=== PATIENT | male | born 1965 | race Caucasian/White ===

== ENCOUNTER 2022-11-13 19:39 | Emergency (ER) | payer MEDICAID, OTHER, SELFPAY ==
[2022-11-13 19:56] VITALS: BP 162/76; PULSE 71; RESP 18; O2SAT 95; BMI 25.7
--- NOTE | 2022-11-13 20:03 | DI.RAD.S_ITS ---
PROCEDURE: XR ANKLE LT MIN 3V INDICATIONS: injury TECHNIQUE: 3 views of the ankle were acquired. COMPARISON: None. FINDINGS: Bones: No fractures or dislocations. Ankle mortise is normally aligned. No suspicious bony lesions. Soft tissues: There is periarticular soft tissue swelling. There is a small tibiotalar joint effusion. Achilles tendon appears normal. IMPRESSION: 1. No fracture or dislocation. Dictated by: Montana Hankins M.D. on 11/13/2022 at 21:33 Approved by: Montana Hankins M.D. on 11/13/2022 at 21:33
--- NOTE | 2022-11-14 01:11 | ED.LOWEXIN ---
HPI - Extremity Injury (Lower) General Chief Complaint: Extremity Injury, Lower Stated Complaint: Left ankle injury Time Seen by Provider: 11/14/22 01:06 Source: patient Mode of arrival: Wheelchair History of Present Illness HPI Narrative: Patient 57-year-old male history of hypertension mitral valve prolapse presenting today with left ankle pain. He reports that he tore his ACL he is waiting to get it repaired in the meantime he fell 2 days ago injuring his left ankle. His left leg is noted to be erythematous swollen and tender to touch. He denies any fever chills or shortness for breath. Related Data Previous Rx's Medication Instructions Recorded doxycycline hyclate 100 mg capsule 100 mg PO BID #20 caps 11/14/22 Allergies Allergy/AdvReac Type Severity Reaction Status Date / Time Penicillins Allergy Unknown Verified 11/14/22 02:04 Review of Systems Review of Systems ROS Unobtainable: All systems reviewed & are unremarkable except as noted in HPI and below Patient History Social History Smoking Status: Current every day smoker Smoking Status: Current every day smoker Substance Use Type: does not use Exam Initial Vital Signs Initial Vital Signs: Vital Signs Pulse Rate 71 11/13/22 19:56 Respiratory Rate 18 11/13/22 19:56 Blood Pressure 162/76 H 11/13/22 19:56 Pulse Oximetry 95 11/13/22 19:56 Oxygen Delivery Method Room Air 11/13/22 19:56 GENERAL: Alert pleasant 57-year-old male and in no acute distress. HEENT: Head atraumatic,EOMI, pupils reactive, face symmetric, moist mucous membranes CARDIOVASCULAR: Regular rate and rhythm without murmurs, rubs or gallops. RESPIRATORY: Breath sounds equal bilaterally, no wheezes rales or rhonchi. ABDOMEN: Soft, nontender. Normoactive bowel sounds all 4 quadrants. No guarding or rebound. EXTREMITIES: Normal range of motion, no clubbing or edema. Neurovascularly intact NEUROLOGICAL: Alert and oriented x4.Normal gait and speech. SKIN: Erythematous swollen left lower extremity +2 pitting edema. Erythema is inferior of the knee but is most of the lower extremity Course Orders Ordered: ED Orders 11/14/22 01:20 US periph venous low extrem lt Stat 11/14/22 01:30 CBC Auto Diff [Complete Blood Count AUTO DIFF] Stat CMP [Comprehensive Metabolic Panel] Stat Lactate (Lactic Acid) Stat 11/14/22 01:40 Blood Culture Stat Discontinued Medications Ceftriaxone Sodium 2,000 mg/ (Sodium Chloride) 100 mls @ 200 mls/hr IV NOW ONE Stop: 11/14/22 01:21 Last Infusion: 11/14/22 02:09 Dose: 0 mls/hr Documented By: Admin: 11/14/22 01:39 Dose: 200 mls/hr Documented By: CHRIS Vital Signs Vital signs: Vital Signs - 8 hr 11/14/22 03:32 Temperature 97.6 F Pulse Rate 88 Respiratory Rate 18 Blood Pressure 164/88 H Pulse Oximetry 97 Oxygen Delivery Method Room Air MDM - Extremity Injury (Lower) Lab Data 11/14/22 01:30 11/14/22 01:30 Labs: Lab Results 11/14/22 11/14/22 11/14/22 Range/Units 01:30 01:30 01:30 WBC 6.5 (4.5-11.0) X10^3/uL RBC 4.18 L (4.5-5.9) X10^6/uL Hgb 12.8 L (13.5-17.5) g/dL Hct 37.5 L (41-53) % MCV 89.7 (80-100) fL MCH 30.6 (26-34) PG MCHC 34.1 (30-36) % RDW 13.3 (11.6-14.8) % Plt Count 182 (150-400) X10^3/uL Neut % (Auto) 67.8 (50-75) % Lymph % (Auto) 21.6 L (25-40) % [place] % (Auto) 10.0 (3-14) % Eos % (Auto) 0.5 L (2-4) % Baso % (Auto) 0.1 (0-2) % Neut # (Auto) 4400 (5549-5040) /uL Lymph # (Auto) 1400 (5043-9530) /uL [place] # (Auto) 700 (0-900) /uL Eos # (Auto) 0 (0-450) /uL Baso # (Auto) 0 (0-100) /uL Sodium 135 L (137-145) mmol/L Potassium 3.3 L (3.4-5.1) mmol/L Chloride 94 L (98-107) mmol/L Carbon Dioxide 34 H (22-32) mmol/L BUN 13 (9-20) mg/dL Creatinine 0.71 (0.66-1.25) mg/dL Estimated GFR > 60 (>60) mL/min BUN/Creatinine Ratio 18.3 (6-22) Glucose 106 H (70-100) mg/dL Lactate 0.7 (0.7-2.1) mmol/L Calcium 8.8 (8.4-10.2) mg/dL Total Bilirubin 0.6 (0.2-1.3) mg/dL AST 34 (17-59) IU/L ALT 33 (<50) IU/L Alkaline Phosphatase 84 (38-126) U/L Total Protein 7.0 (6.3-8.2) g/dL Albumin 3.8 (3.5-5.0) g/dL Globulin 3.2 (1.7-4.1) g/dL Albumin/Globulin Ratio 1.2 (1.0-2.8) Imaging Data Extremity x-ray #1: Radiologist's Impression: PROCEDURE:? XR ANKLE LT MIN 3V ? INDICATIONS:? injury ? TECHNIQUE:? 3 views of the ankle were acquired.? ? COMPARISON:? None. ? FINDINGS:? ? Bones:? No fractures or dislocations.? Ankle mortise is normally aligned.? No suspicious bony lesions.? ? Soft tissues:? There is periarticular soft tissue swelling.? There is a small tibiotalar joint effusion.? Achilles tendon appears normal.? ? ? IMPRESSION:? ? 1. No fracture or dislocation. ? Dictated by: Montana Hankins M.D. on 11/13/2022 at 21:33 ? ? US - DVT: Radiologist's Impression: Preliminary report negative for left lower extremity DVT MDM Narrative Medical decision making narrative: Patient 57-year-old male who presents today with left leg pain and lower extremity erythema concern for cellulitis. Ultrasound was done and ruled out a DVT. He does not show signs of sepsis vitals are stable he has no leukocytosis or elevated lactate. Electrolytes show mild hypokalemia and hyponatremia sodium 135 potassium 3 3 he is a bicarb of 34. He did receive 1 dose of Rocephin will send him home on doxycycline with strict return precautions. He is also placed in a knee mobilizer help stabilize knee he is given crutches. Discharge Plan Departure Patient Disposition: Home Clinical Impression: Cellulitis Instructions: DI for Cellulitis -- Adult Activity Restrictions/Additional Instructions: *You have been diagnosed with cellulitis *What to do: Please monitor the redness in your leg you have an infection. If it is getting worse you must return to the emergency department. You can follow-up with orthopedics in regards to your knee. *Continue to take medications as directed Doxycycline 100 mg twice a day for 10 days *Follow up with your primary care provider in 2-3 days or call [phone] *Return to ER if you should have increasing redness pain and swelling or any new, worsening or concerning symptoms Prescriptions: New doxycycline hyclate 100 mg capsule 100 mg PO BID Qty: 20 0RF Referrals: [facility] [Provider Group] Stand Alone Forms: Patient Portal/API
--- NOTE | 2022-11-14 01:20 | DI.US.S_ITS ---
PROCEDURE: US PERIPH VENOUS LOW EXTREM LT INDICATIONS: swelling TECHNIQUE: Real-time imaging, as well as color and pulse Doppler interrogation, were performed of the lower extremity deep veins from the inguinal ligament to the popliteal fossa. COMPARISON: None. FINDINGS: The common femoral, femoral and popliteal veins are normally compressible, and free of intraluminal thrombus. Color and pulse Doppler demonstrate normal phasic intraluminal flow. There is normal augmentation response to distal compression maneuver. IMPRESSION: Negative for DVT. Agree with prelim report. Prominent left groin lymph nodes measuring up to 0.9 cm in short axis. Dictated by: Edward Alvarenga M.D. on 11/14/2022 at 8:04 Approved by: Edward Alvarenga M.D. on 11/14/2022 at 8:04
[2022-11-14] MEDS: cefTRIAXone 2,000 MG in SODIUM CHLORIDE 0.9% 100 ML 200 MG IV (01:39)
[2022-11-14 02:05] LABS: Lactate (Lactic Acid) 0.7 mmol/L (0.7-2.1)
[2022-11-14 02:06] LABS: Alanine Aminotransferase 33 IU/L (<50); Albumin 3.8 g/dL (3.5-5.0); Albumin Globulin Ratio 1.2 (1.0-2.8); Alkaline Phosphatase 84 U/L (38-126); Aspartate Aminotransferase 34 IU/L (17-59); BUN Creatinine Ratio 18.3 (6-22); Bilirubin Total 0.6 mg/dL (0.2-1.3); Blood Urea Nitrogen 13 mg/dL (9-20); Calcium 8.8 mg/dL (8.4-10.2); Carbon Dioxide 34 mmol/L (22-32); Chloride 94 mmol/L (98-107); Estimated Glomerular Filt Rate > 60 mL/min (>60); Globulin 3.2 g/dL (1.7-4.1); Glucose 106 mg/dL (70-100); HEMOLYSIS < 15 (0-50); Potassium 3.3 mmol/L (3.4-5.1); Sodium 135 mmol/L (137-145)
[2022-11-14 02:08] LABS: Add Manual Diff / Slide Review NO; Basophils Absolute Auto 0 /uL (0-100); Basophils Percent Auto 0.1 % (0-2); Eosinophils Absolute Auto 0 /uL (0-450); Eosinophils Percent Auto 0.5 % (2-4); Hematocrit 37.5 % (41-53); Hemoglobin 12.8 g/dL (13.5-17.5); Lymphocytes Absolute Auto 1400 /uL (1100-4500); Lymphocytes Percent Auto 21.6 % (25-40); Mean Corpuscular HGB Conc 34.1 % (30-36); Mean Corpuscular Hemoglobin 30.6 PG (26-34); Mean Corpuscular Volume 89.7 fL (80-100); Monocytes Absolute Auto 700 /uL (0-900); Neutrophils Absolute Auto 4400 /uL (1500-7000); Neutrophils Percent Auto 67.8 % (50-75); Platelet Count 182 X10^3/uL (150-400); Red Blood Cell Count 4.18 X10^6/uL (4.5-5.9); Red Cell Distribution Width 13.3 % (11.6-14.8); White Blood Cell Count 6.5 X10^3/uL (4.5-11.0)
[2022-11-14 03:32] VITALS: BP 164/88; PULSE 88; RESP 18; TEMP 36.4; O2SAT 97
== END 2022-11-14 03:33 | disposition home or self-care (01) ==
PROVIDERS: Emergency Provider Emergency Medicine
DX: L03.116 Cellulitis of left lower limb (principal)
CPT/HCPCS: 36415; 73610; 80053; 83605; 85025; 87040; 93971; 96365; 99284; J0696

== ENCOUNTER 2023-04-03 14:19 | Emergency (ER) | payer OTHER, MEDICAID, SELFPAY ==
[2023-04-03 14:26] VITALS: BP 201/95; PULSE 67; RESP 16; TEMP 36.9; O2SAT 99; BMI 27.7
--- NOTE | 2023-04-03 14:45 | DI.RAD.S_ITS ---
PROCEDURE: XR KNEE RT 1TO2V INDICATIONS: knee pain TECHNIQUE: 2 views of the knee were acquired. COMPARISON: None. FINDINGS: Bones: No fractures or dislocations. No suspicious bony lesions. Soft tissues: Small joint effusion. No suspicious soft tissue calcifications. IMPRESSION: Small knee joint effusion. No displaced fracture. If there remains a high clinical concern or the patient cannot bear weight, consider cross-sectional imaging to exclude an occult fracture. Dictated by: Cristiano Hassan M.D. on 04/03/2023 at 16:52 Approved by: Cristiano Hassan M.D. on 04/03/2023 at 16:52
--- NOTE | 2023-04-03 14:45 | DI.RAD.S_ITS ---
PROCEDURE: XR KNEE LT 1TO2V INDICATIONS: knee pain TECHNIQUE: 2 views of the knee were acquired. COMPARISON: None. FINDINGS: Bones: No fractures or dislocations. No suspicious bony lesions. Soft tissues: Moderate joint effusion. No suspicious soft tissue calcifications. IMPRESSION: Moderate knee joint effusion. No displaced fracture. If there remains a high clinical concern or the patient cannot bear weight, consider cross-sectional imaging to exclude an occult fracture. Dictated by: Cristiano Hassan M.D. on 04/03/2023 at 16:51 Approved by: Cristiano Hassan M.D. on 04/03/2023 at 16:52
[2023-04-03 16:20] VITALS: BP 213/95; PULSE 63; O2SAT 98
--- NOTE | 2023-04-03 16:20 | PC.NURSE ---
COLEMAN Corado notified of SBP of 213
--- NOTE | 2023-04-03 16:40 | ED_ITS ---
HPI - Extremity Problem <Mickie Loyd PA-C - Last Filed: 04/03/23 18:48> General Chief complaint: Extremity Problem,Nontraumatic Stated complaint: knees not functioning Time Seen by Provider: 04/03/23 14:39 Source: patient Mode of arrival: Wheelchair History of Present Illness HPI Narrative: 58-year-old male with no reported past medical history presents to the ED with 1 year of bilateral knee pain. Patient states he has had the chronic knee pain for a year or more, however it is worsening recently, he is unable to bear weight and that it is very painful. Patient states that he has a nurse who sees him every 3 days to ensure that he is taking his medications, and that she sent him to the ED for some imaging. Patient states that he is in the ED today in order to get some imaging. Patient denies any recent trauma. Patient denies numbness, tingling, weakness, fever, chills, chest pain, shortness of breath. Related Data Home Medications Medication Instructions Recorded Confirmed morphine 60 mg tablet,extended 60 mg PO Q8H 04/03/23 04/03/23 release oxycodone 15 mg tablet 15 mg PO Q4-6H PRN severe pain 04/03/23 04/03/23 Allergies Allergy/AdvReac Type Severity Reaction Status Date / Time Penicillins Allergy Unknown Verified 04/03/23 14:26 Review of Systems <Mickie Loyd PA-C - Last Filed: 04/03/23 18:48> Constitutional Constitutional: Denies chills, Denies fatigue, Denies fever(s), Denies frequent falls, Denies lethargy and Denies weakness Eyes Eyes: Denies change in vision, Denies eye discharge, Denies irritation and Denies loss of vision ENT Ears, Nose, Mouth, and Throat: Denies change in voice, Denies dizziness, Denies neck pain, Denies sore throat and Denies throat swelling Cardiovascular Cardiovascular: Denies chest pain, Denies irregular heart rhythm, Denies lightheadedness, Denies palpitations, Denies dyspnea, Denies dyspnea on exertion and Denies orthopnea Respiratory Respiratory: Denies cough, Denies dyspnea, Denies dyspnea on exertion and Denies wheezing Gastrointestinal Gastrointestinal: Denies abdominal pain, Denies change in bowel habits, Denies diarrhea, Denies nausea and Denies vomiting Musculoskeletal Musculoskeletal: Denies neck pain and Denies numbness Comments: Bilateral knee pain, left greater than right Integumentary/Breasts Skin/Breast: Denies pruritus, Denies erythema, Denies rash and Denies wounds Neurologic Neurologic: Denies behavioral changes, Denies confusion, Denies dizziness, Denies frequent falls, Denies loss of vision, Denies numbness and Denies weakness Psychiatric Psychiatric: Denies anxiety, Denies behavioral changes, Denies confusion, Denies depression, Denies homicidal ideation and Denies suicidal ideation Endocrine Endocrine: Denies fatigue, Denies flushing and Denies palpitations Hematologic/Lymphatic Hematologic/Lymphatic: Denies easy bruising Allergic/Immunologic Allergic/Immunologic: Denies urticaria, Denies throat swelling and Denies wheezing Patient History <Mickie Loyd PA-C - Last Filed: 04/03/23 18:48> Social History Smoking Status: Current every day smoker Smoking Status: Current every day smoker tobacco type: cigarettes Substance Use Type: does not use Exam <Mickie Loyd PA-C - Last Filed: 04/03/23 18:48> Narrative Exam Narrative: Const General:?cooperative, healthy appearing and comfortable [facility] Head:?normal to inspection Ears:?hearing grossly normal bilaterally Nose:?external nose normal Face and sinus:?normal facial exam and sinuses nontender Mouth:?oral mucosae normal Throat:?posterior oropharynx normal Eyes General:?appearance normal, both eyes and all related structures Neck Neck:?normal visual inspection and no lymphadenopathy noted Resp Effort & Inspection:?normal respiratory effort Auscultation:?clear to auscultation bilaterally Cardio Rate:?regular rate Rhythm:?regular rhythm Musculoskeletal Bilateral knees appear normal to inspection. No erythema, bruising, deformities. There is no tenderness to palpation. There is full range of motion. Patient is neurovascularly intact. Neuro General:?patient alert, patient awake and patient oriented x3 Initial Vital Signs Initial Vital Signs: Vital Signs Temperature 98.4 F 04/03/23 14:26 Pulse Rate 67 04/03/23 14:26 Respiratory Rate 16 04/03/23 14:26 Blood Pressure 201/95 H 04/03/23 14:26 Pulse Oximetry 99 04/03/23 14:26 Oxygen Delivery Method Room Air 04/03/23 14:26 <Fausto Bustillo MD - Last Filed: 04/04/23 07:21> Initial Vital Signs Initial Vital Signs: Vital Signs Temperature 98.4 F 04/03/23 14:26 Pulse Rate 67 04/03/23 14:26 Respiratory Rate 16 04/03/23 14:26 Blood Pressure 201/95 H 04/03/23 14:26 Pulse Oximetry 99 04/03/23 14:26 Oxygen Delivery Method Room Air 04/03/23 14:26 Course <Mickie Loyd PA-C - Last Filed: 04/03/23 18:48> Orders Ordered: ED Orders 04/03/23 14:45 XR knee LT 1to2V Stat XR knee RT 1to2V Stat Vital Signs Vital signs: Vital Signs - 8 hr 04/03/23 14:26 04/03/23 16:20 04/03/23 17:18 Temperature 98.4 F Pulse Rate 67 63 63 Respiratory Rate 16 18 Blood Pressure 201/95 H 213/95 H 178/84 H Pulse Oximetry 99 98 100 Oxygen Delivery Method Room Air Room Air Room Air <Fausto Bustillo MD - Last Filed: 04/04/23 07:21> Orders Ordered: ED Orders 04/03/23 14:45 XR knee LT 1to2V Stat XR knee RT 1to2V Stat Vital Signs Vital signs: Vital Signs - 8 hr 04/03/23 14:26 04/03/23 16:20 04/03/23 17:18 Temperature 98.4 F Pulse Rate 67 63 63 Respiratory Rate 16 18 Blood Pressure 201/95 H 213/95 H 178/84 H Pulse Oximetry 99 98 100 Oxygen Delivery Method Room Air Room Air Room Air MDM - Extremity (Nontraumatic) <Mickie Loyd PA-C - Last Filed: 04/03/23 18:48> MDM Narrative Medical decision making narrative: 58-year-old male with no reported past medical history presents to the ED with 1 year of bilateral knee pain. Concern for fracture/dislocation versus osteoarthritis versus musculoskeletal sprain/strain versus other. Will obtain xrays. X-rays without fractures or dislocations. There were bilateral knee effusions. Discussed findings with patient. Patient agrees to follow-up with PCP. ED return precautions discussed with patient. Patient verbalized understanding. Medical records reviewed: Yes Discharge Plan Departure Patient Disposition: Home Clinical Impression: Knee pain Qualifiers: Chronicity: chronic Laterality: bilateral Qualified Code(s): M25.561 - Pain in right knee Instructions: DI for Knee Pain Activity Restrictions/Additional Instructions: You were evaluated in the ED today for knee pain in both knees. We obtained x- rays which showed no fractures or dislocations or other abnormalities. Please follow-up with your primary care doctor as soon as possible for further evaluation. You may take Tylenol or ibuprofen for the pain. Return to the ED if your worsening pain, numbness, tingling, weakness. Prescriptions: No Action oxycodone 15 mg tablet 15 mg PO Q4-6H PRN (Reason: severe pain) morphine 60 mg tablet extended release 60 mg PO Q8H Stand Alone Forms: Patient Portal/API ED Sign-out <Fausto Bustillo MD - Last Filed: 04/04/23 07:21> [facility]: I was immediately available in the department for consultation. ?This documentation has been reviewed and I agree with assessment and plan. Supervised by Fausto Bustillo MD
[2023-04-03 17:18] VITALS: BP 178/84; PULSE 63; RESP 18; O2SAT 100
== END 2023-04-03 17:18 | disposition home or self-care (01) ==
PROVIDERS: Emergency Provider Student in an Organized Health Care Education/Training Program
DX: M25.562 Pain in left knee (principal); M25.561 Pain in right knee
CPT/HCPCS: 73560; 99283